=== PATIENT | male | born 1965 | race Caucasian/White ===

== ENCOUNTER 2016-03-13 15:11 | Emergency (ER) | payer BC ==
[~2016-03-13 15:11] MED LIST: AMLO-151 PO; INDA125TA PO
--- NOTE | 2016-03-13 16:26 | REP ---
Clinical: Trauma. Technique: Frontal view of the chest with multiple views of the left hemithorax. Findings: Frontal view of the chest demonstrates no acute consolidation/contusion, effusion or pneumothorax. Multiple views of the left hemithorax demonstrates no obvious acute rib fracture or pathology. Impression: Normal left rib series Signed by Markos Asher MD 03/13/2016 04:17 P
[2016-03-13] MEDS ORDERED: PERCOCET 5MG/325MG TAB As Ordered ONE (16:53)
[2016-03-13] MEDS ORDERED: BENZONATATE 100 MG CAP As Ordered ONE (16:55)
--- NOTE | 2016-03-13 17:09 | EDDOCDS ---
Physician Documentation [facility] Name: Bacilio Granados Age: 50 yrs Sex: Male : 1965 Arrival Date: 03/13/2016 Time: 15:11 Bed 17 Private MD: Ganesh Disposition: 03/13/16 16:51 Discharged to Home/Self Care. Impression: Intercostal pain. - Condition is Stable. - Discharge Instructions: Chest Wall Pain. - Prescriptions for Percocet 5- 325 mg Oral Tablet - take 1 tablet by ORAL route every 6 hours As needed MDD: 4 tabs; 20 tablet. benzonatate 200 mg Oral Capsule - take 1 capsule by ORAL route 3 times per day As needed; 30 capsule. - Medication Reconciliation, Local Pharmacy Hours form. - Follow up: Ganesh; When: 4 - 5 days; Reason: Recheck today's complaints, Continuance of care. - Problem is an ongoing problem. - Symptoms are unchanged. Historical: - Allergies: no known allergies; - Home Meds: 1. aspirin 81 mg Oral tab 1 tab once daily (Last dose: 03/13/2016 09:00) 2. Exforge HCT 5-160-12.5 mg oral tab 1 tab once daily - PMHx: Hypertension; Sleep Apnea w/o CPAP; Sarcoidosis; - PSHx: none; - Social history: Smoking status: Patient states was never smoker of tobacco. No barriers to communication noted, The patient speaks fluent Cymraes. - Family history: Not pertinent. - : The pt / caregiver states he / she is not on anticoagulants. Home medication list is obtained from the patient. - Exposure Risk Screening:: None identified. Vital Signs: 03/13 15:13 BP 148 / 98; Pulse 110; Resp 20 S; Temp 97.4(O); Pulse Ox 99% on R/A; Weight 133.81 kg gr2 / 295 lbs (R); Height 6 ft. 0 in. (182.88 cm) (R); Pain 8/10; 16:41 Pulse 110 MON; Pulse Ox 96% ; jmk 16:43 BP 154 / 98 (auto/); jmk 16:53 BP 150 / 91 (auto/); jmk 16:53 Pulse 108 MON; Pulse Ox 95% ; jmk 16:55 BP 150 / 91; Pulse 110; Resp 20; Temp 96.7(O); Pulse Ox 95% on R/A; Pain 7/10; ar3 15:13 Body Mass Index 40.01 (133.81 kg, 182.88 cm) gr2 MDM: 15:22 ECG WITH READING ER PHYS+CARDIAG ordered. EDMS 15:51 Rib Unilat W/PA Chest Only Ordered. EDMS 16:07 Financial registration complete. gjb 16:13 [facility] Payment Agreement was scanned into [employer] and attached to record. roz 16:46 oxyCODONE-acetaminophen 5 mg-325 mg 2 tabs PO once ordered. jesusita 16:46 Tessalon 200 mg PO once ordered. ke Administered Medications: 17:04 Drug: oxyCODONE-acetaminophen 2 tabs [oxycodone-acetaminophen 5 mg-325 mg tablet (2 jmk tabs)] Route: PO; 17:04 Drug: Tessalon 200 mg Route: PO; nani Signatures: Dispatcher [employer] EDMS Topher Felipe,RN RN Uche Ramirez, COIL WINDER HAND COIL WINDER HAND Sindhu Dan The chart was reviewed and I authenticate all verbal orders and agree with the evaluation and treatment provided.Attachments: 16:13 [facility] Payment Agreement gjb MTDD
--- NOTE | 2016-03-13 17:09 | EDDOCDS ---
Nurse's Notes [facility] Name: Bacilio Granados Age: 50 yrs Sex: Male : 1965 Arrival Date: 03/13/2016 Time: 15:11 Bed 17 Private MD: Ganesh Diagnosis: Intercostal pain Presentation: 03/13 15:22 Presenting complaint: Patient states: he developed chest pain after coughing - was even kcs black and blue on his left rib area - got better - today the pain has come back worse again after he coughed - now pain increases with cough and palpation. Aspirin was not taken prior to arrival. Adult Sepsis Screening: The patient does not have new or worsening altered mentation. Patient's respiratory rate is less than 22. Systolic blood pressure is greater than 100. Patient has a qSOFA score of 0- Negative Sepsis Screen. Suicide/Homicide risk assessment- the patient denies having any suicidal and/or homicidal ideations and does not present with any other emotional, behavioral or mental health complaints. Status: Patient is not a technical services representative or dependent. Transition of care: patient was not received from another setting of care. Red Flag criteria, patient assessed and taken directly to a bed. 15:22 Method Of Arrival: Wheelchair kcs 15:22 Acuity: EVELYNE Level 2 kcs Triage Assessment: 15:34 General: Appears uncomfortable. Pain: Location: left lateral anterior chest and left jmk breast. Pt Declines HIV testing. Cardiovascular: Capillary refill < 3 seconds Clubbing of nail beds is absent Heart tones S1 S2 present Edema is 1+ to left ankle Rhythm is regular Chest pain is described as radiates Does not radiate. episodes are continuous. Respiratory: No deficits noted. Airway is patent Respiratory effort is even, unlabored, Respiratory pattern is regular, Breath sounds are clear bilaterally. GI: Abdomen is flat, non- distended Bowel sounds present X 4 quads. 15:37 Cardiovascular: Chest pain began. jmk Historical: - Allergies: no known allergies; - Home Meds: 1. aspirin 81 mg Oral tab 1 tab once daily (Last dose: 03/13/2016 09:00) 2. Exforge HCT 5-160-12.5 mg oral tab 1 tab once daily - PMHx: Hypertension; Sleep Apnea w/o CPAP; Sarcoidosis; - PSHx: none; - Social history: Smoking status: Patient states was never smoker of tobacco. No barriers to communication noted, The patient speaks fluent Romansh. - Family history: Not pertinent. - : The pt / caregiver states he / she is not on anticoagulants. Home medication list is obtained from the patient. - Exposure Risk Screening:: None identified. Screenin:37 Screening information is obtained from the patient. Fall risk: No risks identified. jmk Assistance ADL's: requires no assistance with activities of daily living. Abuse/DV Screen: The patient / caregiver reports he/she is: not in a situation that causes fear, pain or injury. Nutritional screening: No deficits noted. Advance Directives: Currently, there is a health care proxy, spouse, ludy. There is no active DNR order. There is no living will. There is no Power of Organic Search Lead. Assessment: 15:37 General: Appears appears uncomfortable. Indicates discomfort to left anterior/ lateral jmk chest . splinting with inspiration. without bruising redness ecchymosis or crepetitus./ pain increases with change in position. Cardiovascular: Capillary refill < 3 seconds Clubbing of nail beds is absent Heart tones S1 S2 present Rhythm is regular. 17:04 General: Appears states pajn is 6/10 " not that bad if I do not cough. without resp jmk distress. Vital Signs: 15:13 BP 148 / 98; Pulse 110; Resp 20 S; Temp 97.4(O); Pulse Ox 99% on R/A; Weight 133.81 kg gr2 (R); Height 6 ft. 0 in. (182.88 cm) (R); Pain 8/10; 16:41 Pulse 110 MON; Pulse Ox 96% ; jmk 16:43 BP 154 / 98 (auto/); jmk 16:53 BP 150 / 91 (auto/); jmk 16:53 Pulse 108 MON; Pulse Ox 95% ; jmk 16:55 BP 150 / 91; Pulse 110; Resp 20; Temp 96.7(O); Pulse Ox 95% on R/A; Pain 7/10; ar3 15:13 Body Mass Index 40.01 (133.81 kg, 182.88 cm) gr2 Vitals: 15:13 Log In Time: March 13, 2016 at 15:13. RN notified that patient meets Red Flag gr2 criteria. ED Course: 15:13 Patient visited by Scott Muñoz. gr2 15:13 Ganesh is Private Physician. gr2 15:13 Patient moved to Waiting gr2 15:15 Patient visited by Scott Muñoz. gr2 15:21 Kinsey Hanna,RN is Primary Nurse. kcs 15:21 Patient moved to 17 kcs 15:25 Triage Initiated kcs 15:27 Patient visited by Sharyn Hickman. dem1 15:27 EKG done. (by ED staff). Reviewed by Ameena Esquivel MD. dem1 15:29 Uche Gautam FNP is PHCP. ke 15:29 Patient visited by Uche Gautam FNP. ke 15:29 Patient visited by Uche Gautam FNP. ke 15:37 The patient / caregiver is instructed regarding the plan of care and ED course. Cardiac jmk monitor on. Pulse ox on. 15:37 Inserted saline lock: 20 gauge in left antecubital area. jmk 15:40 Patient visited by Topher Felipe RN. jmk 16:13 Patient visited by Uche Gautam FNP. ke 16:13 [facility] Payment Agreement was scanned into [employer] and attached to record. gjb 16:41 Patient visited by Uche Gautam FNP. ke 16:41 Discontinued lock intact, bleeding controlled, pressure dressing applied, No jmk redness/swelling at site. No procedures done that require assistance. 16:50 Ganesh is Referral Physician. ke 16:53 Rib Unilat W/PA Chest Only Returned. EDMS 16:56 Patient visited by Mey Willoughby PCA. ar3 Administered Medications: 17:04 Drug: oxyCODONE-acetaminophen 2 tabs [oxycodone-acetaminophen 5 mg-325 mg tablet (2 jmk tabs)] Route: PO; 17:04 Drug: Tessalon 200 mg Route: PO; jmk Order Results: Radiology Order: Rib Unilat W/PA Chest Only Test: Rib Unilat W/PA Chest Only REASON FOR EXAMINATION: Chest Pain; Clinical: Trauma.; ; Technique: Frontal view of the chest with multiple views of the left; hemithorax.; ; Findings:; Frontal view of the chest demonstrates no acute consolidation/contusion, effusion; or pneumothorax. Multiple views of the left hemithorax demonstrates no obvious; acute rib fracture or pathology.; ; Impression:; Normal left rib series; ; ; Signed by; Markos Asher MD 03/13/2016 04:17 P; Outcome: 16:41 Discharge Assessment: Patient awake, alert and oriented x 3. No cognitive and/or jmk functional deficits noted. Patient verbalized understanding of disposition instructions. patient administered narcotics - yes. Pt provided with safe discharge. The following High Risk Discharge criteria are identified: None. Discharged to home ambulatory, with family. Condition: good. Discharge instructions given to patient, Instructed on discharge instructions, follow up and referral plans. medication usage, Demonstrated understanding of instructions, medications, Pt was receptive of discharge instructions/ teaching. Prescriptions given X 2. No special radiology studies were completed. Property :Personal belongings accompany Pt. 16:51 Discharge ordered by Provider. jesusita 17:08 Patient left the ED. nani Signatures: Dispatcher [employer] EDMS Mell Stone, RN RN Topher Darling RN RN jmk Elsner, Karl, BIOMETRICS ANALYST BIOMETRICS ANALYST Mey Perez, DIEGO CORPORATE SCHEDULER ar3 Sharyn Hickman1 Scott Muñoz gr2 Sindhu Correa MTDD
--- NOTE | 2016-03-14 08:09 | ECGEPIP ---
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
--- NOTE | 2016-03-15 18:08 | EDDOCDS ---
Physician Documentation [facility] Name: Bacilio Granados Age: 50 yrs Sex: Male : 1965 Arrival Date: 03/13/2016 Time: 15:11 Bed 17 Private MD: Ganesh Disposition: 03/13/16 16:51 Discharged to Home/Self Care. Impression: Intercostal pain. - Condition is Stable. - Discharge Instructions: Chest Wall Pain. - Prescriptions for Percocet 5- 325 mg Oral Tablet - take 1 tablet by ORAL route every 6 hours As needed MDD: 4 tabs; 20 tablet. benzonatate 200 mg Oral Capsule - take 1 capsule by ORAL route 3 times per day As needed; 30 capsule. - Medication Reconciliation, Local Pharmacy Hours form. - Follow up: Ganesh; When: 4 - 5 days; Reason: Recheck today's complaints, Continuance of care. - Problem is an ongoing problem. - Symptoms are unchanged. Historical: - Allergies: no known allergies; - Home Meds: 1. aspirin 81 mg Oral tab 1 tab once daily (Last dose: 03/13/2016 09:00) 2. Exforge HCT 5-160-12.5 mg oral tab 1 tab once daily - PMHx: Hypertension; Sleep Apnea w/o CPAP; Sarcoidosis; - PSHx: none; - Social history: Smoking status: Patient states was never smoker of tobacco. No barriers to communication noted, The patient speaks fluent Czech. - Family history: Not pertinent. - : The pt / caregiver states he / she is not on anticoagulants. Home medication list is obtained from the patient. - Exposure Risk Screening:: None identified. Vital Signs: 03/13 15:13 BP 148 / 98; Pulse 110; Resp 20 S; Temp 97.4(O); Pulse Ox 99% on R/A; Weight 133.81 kg gr2 / 295 lbs (R); Height 6 ft. 0 in. (182.88 cm) (R); Pain 8/10; 16:41 Pulse 110 MON; Pulse Ox 96% ; jmk 16:43 BP 154 / 98 (auto/); jmk 16:53 BP 150 / 91 (auto/); jmk 16:53 Pulse 108 MON; Pulse Ox 95% ; jmk 16:55 BP 150 / 91; Pulse 110; Resp 20; Temp 96.7(O); Pulse Ox 95% on R/A; Pain 7/10; ar3 15:13 Body Mass Index 40.01 (133.81 kg, 182.88 cm) gr2 MDM: 15:22 ECG WITH READING ER PHYS+CARDIAG ordered. EDMS 15:51 Rib Unilat W/PA Chest Only Ordered. EDMS 16:07 Financial registration complete. gjb 16:13 [facility] Payment Agreement was scanned into [employer] and attached to record. gjb 16:46 oxyCODONE-acetaminophen 5 mg-325 mg 2 tabs PO once ordered. ke 16:46 Tessalon 200 mg PO once ordered. ke 03/14 03:58 T-Sheet-- Draft Copy was scanned into [employer] and attached to record. hs2 09:14 ECG/EKG was scanned into [employer] and attached to record. gb Administered Medications: 03/13 17:04 Drug: oxyCODONE-acetaminophen 2 tabs [oxycodone-acetaminophen 5 mg-325 mg tablet (2 jmk tabs)] Route: PO; 17:04 Drug: Tessalon 200 mg Route: PO; nani Signatures: Dispatcher [employer] EDMS Topher Felipe,RN RN jmk Erika Mooney, Reg Reg gb Uche Gautam, Sindhu Ambroseb Soheila Rousseau, Reg Reg hs2 The chart was reviewed and I authenticate all verbal orders and agree with the evaluation and treatment provided.Attachments: 16:13 [facility] Payment Agreement gjb 03/14 03:58 T-Sheet-- Draft Copy hs2 09:14 ECG/EKG Chart Complete MTDD
--- NOTE | 2016-03-15 18:09 | EDDOCDS ---
Physician Documentation [facility] Name: Bacilio Granados Age: 50 yrs Sex: Male : 1965 Arrival Date: 03/13/2016 Time: 15:11 Bed 17 Private MD: Ganesh Disposition: 03/13/16 16:51 Discharged to Home/Self Care. Impression: Intercostal pain. - Condition is Stable. - Discharge Instructions: Chest Wall Pain. - Prescriptions for Percocet 5- 325 mg Oral Tablet - take 1 tablet by ORAL route every 6 hours As needed MDD: 4 tabs; 20 tablet. benzonatate 200 mg Oral Capsule - take 1 capsule by ORAL route 3 times per day As needed; 30 capsule. - Medication Reconciliation, Local Pharmacy Hours form. - Follow up: Ganesh; When: 4 - 5 days; Reason: Recheck today's complaints, Continuance of care. - Problem is an ongoing problem. - Symptoms are unchanged. Historical: - Allergies: no known allergies; - Home Meds: 1. aspirin 81 mg Oral tab 1 tab once daily (Last dose: 03/13/2016 09:00) 2. Exforge HCT 5-160-12.5 mg oral tab 1 tab once daily - PMHx: Hypertension; Sleep Apnea w/o CPAP; Sarcoidosis; - PSHx: none; - Social history: Smoking status: Patient states was never smoker of tobacco. No barriers to communication noted, The patient speaks fluent Colombian. - Family history: Not pertinent. - : The pt / caregiver states he / she is not on anticoagulants. Home medication list is obtained from the patient. - Exposure Risk Screening:: None identified. Vital Signs: 03/13 15:13 BP 148 / 98; Pulse 110; Resp 20 S; Temp 97.4(O); Pulse Ox 99% on R/A; Weight 133.81 kg gr2 / 295 lbs (R); Height 6 ft. 0 in. (182.88 cm) (R); Pain 8/10; 16:41 Pulse 110 MON; Pulse Ox 96% ; jmk 16:43 BP 154 / 98 (auto/); jmk 16:53 BP 150 / 91 (auto/); jmk 16:53 Pulse 108 MON; Pulse Ox 95% ; jmk 16:55 BP 150 / 91; Pulse 110; Resp 20; Temp 96.7(O); Pulse Ox 95% on R/A; Pain 7/10; ar3 15:13 Body Mass Index 40.01 (133.81 kg, 182.88 cm) gr2 MDM: 15:22 ECG WITH READING ER PHYS+CARDIAG ordered. EDMS 15:51 Rib Unilat W/PA Chest Only Ordered. EDMS 16:07 Financial registration complete. gjb 16:13 [facility] Payment Agreement was scanned into [employer] and attached to record. gjb 16:46 oxyCODONE-acetaminophen 5 mg-325 mg 2 tabs PO once ordered. ke 16:46 Tessalon 200 mg PO once ordered. ke 03/14 03:58 T-Sheet-- Draft Copy was scanned into [employer] and attached to record. hs2 09:14 ECG/EKG was scanned into [employer] and attached to record. gb Administered Medications: 03/13 17:04 Drug: oxyCODONE-acetaminophen 2 tabs [oxycodone-acetaminophen 5 mg-325 mg tablet (2 jmk tabs)] Route: PO; 17:04 Drug: Tessalon 200 mg Route: PO; nani Signatures: Dispatcher [employer] EDMS Topher Felipe,RN RN jmk Erika Mooney, Reg Reg gb Uche Gautam, Sindhu Ambroseb Soheila Rousseau, Reg Reg hs2 The chart was reviewed and I authenticate all verbal orders and agree with the evaluation and treatment provided.Attachments: 16:13 [facility] Payment Agreement gjb 03/14 03:58 T-Sheet-- Draft Copy hs2 09:14 ECG/EKG Chart Complete MTDD
--- NOTE | 2016-03-15 18:09 | EDDOCDS ---
Nurse's Notes [facility] Name: Davonte Granados Age: 50 yrs Sex: Male : 1965 Arrival Date: 03/13/2016 Time: 15:11 Bed 17 Private MD: Ganesh Diagnosis: Intercostal pain Presentation: 03/13 15:22 Presenting complaint: Patient states: he developed chest pain after coughing - was even kcs black and blue on his left rib area - got better - today the pain has come back worse again after he coughed - now pain increases with cough and palpation. Aspirin was not taken prior to arrival. Adult Sepsis Screening: The patient does not have new or worsening altered mentation. Patient's respiratory rate is less than 22. Systolic blood pressure is greater than 100. Patient has a qSOFA score of 0- Negative Sepsis Screen. Suicide/Homicide risk assessment- the patient denies having any suicidal and/or homicidal ideations and does not present with any other emotional, behavioral or mental health complaints. Status: Patient is not a creative services producer or dependent. Transition of care: patient was not received from another setting of care. Red Flag criteria, patient assessed and taken directly to a bed. 15:22 Method Of Arrival: Wheelchair kcs 15:22 Acuity: EVELYNE Level 2 kcs Triage Assessment: 15:34 General: Appears uncomfortable. Pain: Location: left lateral anterior chest and left jmk breast. Pt Declines HIV testing. Cardiovascular: Capillary refill < 3 seconds Clubbing of nail beds is absent Heart tones S1 S2 present Edema is 1+ to left ankle Rhythm is regular Chest pain is described as radiates Does not radiate. episodes are continuous. Respiratory: No deficits noted. Airway is patent Respiratory effort is even, unlabored, Respiratory pattern is regular, Breath sounds are clear bilaterally. GI: Abdomen is flat, non- distended Bowel sounds present X 4 quads. 15:37 Cardiovascular: Chest pain began. jmk Historical: - Allergies: no known allergies; - Home Meds: 1. aspirin 81 mg Oral tab 1 tab once daily (Last dose: 03/13/2016 09:00) 2. Exforge HCT 5-160-12.5 mg oral tab 1 tab once daily - PMHx: Hypertension; Sleep Apnea w/o CPAP; Sarcoidosis; - PSHx: none; - Social history: Smoking status: Patient states was never smoker of tobacco. No barriers to communication noted, The patient speaks fluent [place]. - Family history: Not pertinent. - : The pt / caregiver states he / she is not on anticoagulants. Home medication list is obtained from the patient. - Exposure Risk Screening:: None identified. Screenin:37 Screening information is obtained from the patient. Fall risk: No risks identified. jmk Assistance ADL's: requires no assistance with activities of daily living. Abuse/DV Screen: The patient / caregiver reports he/she is: not in a situation that causes fear, pain or injury. Nutritional screening: No deficits noted. Advance Directives: Currently, there is a health care proxy, spouse, ludy. There is no active DNR order. There is no living will. There is no Power of Revenue Field Agent. Assessment: 15:37 General: Appears appears uncomfortable. Indicates discomfort to left anterior/ lateral jmk chest . splinting with inspiration. without bruising redness ecchymosis or crepetitus./ pain increases with change in position. Cardiovascular: Capillary refill < 3 seconds Clubbing of nail beds is absent Heart tones S1 S2 present Rhythm is regular. 17:04 General: Appears states pajn is 6/10 " not that bad if I do not cough. without resp jmk distress. Vital Signs: 15:13 BP 148 / 98; Pulse 110; Resp 20 S; Temp 97.4(O); Pulse Ox 99% on R/A; Weight 133.81 kg gr2 (R); Height 6 ft. 0 in. (182.88 cm) (R); Pain 8/10; 16:41 Pulse 110 MON; Pulse Ox 96% ; jmk 16:43 BP 154 / 98 (auto/); jmk 16:53 BP 150 / 91 (auto/); jmk 16:53 Pulse 108 MON; Pulse Ox 95% ; jmk 16:55 BP 150 / 91; Pulse 110; Resp 20; Temp 96.7(O); Pulse Ox 95% on R/A; Pain 7/10; ar3 15:13 Body Mass Index 40.01 (133.81 kg, 182.88 cm) gr2 Vitals: 15:13 Log In Time: March 13, 2016 at 15:13. RN notified that patient meets Red Flag gr2 criteria. ED Course: 15:13 Patient visited by Scott Muñoz. gr2 15:13 Ganesh is Private Physician. gr2 15:13 Patient moved to Waiting gr2 15:15 Patient visited by Scott Muñoz. gr2 15:21 Kinsey Hanna,RN is Primary Nurse. kcs 15:21 Patient moved to 17 kcs 15:25 Triage Initiated kcs 15:27 Patient visited by Sharyn Hickman. dem1 15:27 EKG done. (by ED staff). Reviewed by Ameena Esquivel MD. dem1 15:29 Uche Gautam FNP is PHCP. ke 15:29 Patient visited by Uche Gautam FNP. ke 15:29 Patient visited by Uche Gautam FNP. ke 15:37 The patient / caregiver is instructed regarding the plan of care and ED course. Cardiac jmk monitor on. Pulse ox on. 15:37 Inserted saline lock: 20 gauge in left antecubital area. jmk 15:40 Patient visited by Topher Felipe,JOSE. jmk 16:13 Patient visited by Uche Gautam FNP. ke 16:13 [facility] Payment Agreement was scanned into [employer] and attached to record. gjb 16:41 Patient visited by Uche Gautam FNP. ke 16:41 Discontinued lock intact, bleeding controlled, pressure dressing applied, No jmk redness/swelling at site. No procedures done that require assistance. 16:50 Ganesh is Referral Physician. ke 16:53 Rib Unilat W/PA Chest Only Returned. EDMS 16:56 Patient visited by Mey Willoughby PCA. ar3 03/14 03:58 T-Sheet-- Draft Copy was scanned into [employer] and attached to record. hs2 08:36 EKG-ADULT Returned. EDMS 09:14 ECG/EKG was scanned into [employer] and attached to record. 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; : 1965 Requested By: AMEENA Rubio; Order Number: [id number] Reading MD: Amanda Chun; Measurements; Intervals [place]; Rate: 110 P: 23; OK: 148 QRS: 3; QRSD: 85 T: 29; QT: 322; QTc: 436; Interpretive Statements; SINUS TACHYCARDIA; ABNORMAL RHYTHM ECG; NO PRIOR FOR COMPARISON; ; Electronically Signed On 03-14-2016 8:09:06 EST by Amanda Chun; Radiology Order: Rib Unilat W/PA Chest Only Test: Rib Unilat W/PA Chest Only REASON FOR EXAMINATION: Chest Pain; Clinical: Trauma.; ; Technique: Frontal view of the chest with multiple views of the left; hemithorax.; ; Findings:; Frontal view of the chest demonstrates no acute consolidation/contusion, effusion; or pneumothorax. Multiple views of the left hemithorax demonstrates no obvious; acute rib fracture or pathology.; ; Impression:; Normal left rib series; ; ; Signed by; Markos Asher MD 03/13/2016 04:17 P; Outcome: 16:41 Discharge Assessment: Patient awake, alert and oriented x 3. No cognitive and/or jmk functional deficits noted. Patient verbalized understanding of disposition instructions. patient administered narcotics - yes. Pt provided with safe discharge. The following High Risk Discharge criteria are identified: None. Discharged to home ambulatory, with family. Condition: good. Discharge instructions given to patient, Instructed on discharge instructions, follow up and referral plans. medication usage, Demonstrated understanding of instructions, medications, Pt was receptive of discharge instructions/ teaching. Prescriptions given X 2. No special radiology studies were completed. Property :Personal belongings accompany Pt. 16:51 Discharge ordered by Provider. jesusita 17:08 Patient left the ED. nani Signatures: Dispatcher [employer] EDMell Hernández, RN Topher Tamez RN RN jmk Barnhardt, Erika, Reg Reg gb Uche Gautam, EYEGLASS LENS GENERATOR EYEGLASS LENS GENERATOR ke Mey Willoughby, DIEGO STRAW HAT PRESSER ar3 Sharyn Hickman dem1 Scott Muñoz gr2 Sindhu Correab Soheila Rousseau, Reg Reg hs2 Chart Complete MTDD
== END 2016-03-13 17:08 | disposition home or self-care (01) ==
LOC: M ED 15:11
DX: R07.82 Intercostal pain (principal); I10 Essential (primary) hypertension; G47.30 Sleep apnea, unspecified; D86.9 Sarcoidosis, unspecified; Z79.82 Long term (current) use of aspirin; Z79.899 Other long term (current) drug therapy

== ENCOUNTER → 2017-10-15 | Outpatient (REF) | payer BC ==
[2017-10-16 14:14] LABS: PSA TOTAL 3.3 ng/mL (0.0-4.0)
== END ==
LOC: M LAB REF 12:58
DX: R97.20 Elevated prostate specific antigen [PSA] (principal)
CPT/HCPCS: 84154

== ENCOUNTER 2018-07-26 07:32 | Day surgery (SDC) | payer BC ==
[~2018-07-26] VITALS: Ht 182.9 cm; Wt 135.6 kg
[~2018-07-26 07:32] MED LIST changes: +AMLO-150 PO; +ASPI81TA85 PO
[2018-07-26] MEDS ORDERED: LIDOCAINE 2% INJ 100 MG/5 ML SDV (FOR ANES.) As Ordered ONE (07:55)
[2018-07-26] MEDS ORDERED: PROPOFOL 200 MG/20 ML VIAL As Ordered ONE (07:56)
--- NOTE | 2018-07-26 09:01 | ROOR ---
Patient Name: Bacilio Granados Procedure Date: 07/26/2018 8:33 AM Date of : 1965 Age: 53 Room: [facility] Gender: Male Note Status: Finalized Procedure: Colonoscopy Indications: High risk colon cancer surveillance: Personal history of colonic polyps, Last colonoscopy: June 2015 Providers: Genaro BEEBE MD Referring MD: CHARLY DE LA O JR, MD Requesting Provider: Medicines: Monitored Anesthesia Care Complications: No immediate complications. Procedure: Pre-Anesthesia Assessment: - The heart rate, respiratory rate, oxygen saturations, blood pressure, adequacy of pulmonary ventilation, and response to care were monitored throughout the procedure. The Colonoscope was introduced through the anus and advanced to the terminal ileum, with identification of the appendiceal orifice and IC valve. The colonoscopy was performed without difficulty. The patient tolerated the procedure well. The quality of the bowel preparation was good. Findings: The perianal and digital rectal examinations were normal. A tattoo was seen in the mid rectum. A post-polypectomy scar was found at the tattoo site. There was no evidence of residual polyp tissue. Small Internal Hemorrhoids. The exam was otherwise without abnormality on direct and retroflexion views. Retroflexion in the right colon was performed. (Exam: Complete, Prep: Good or Excellent.) Impression: - (Exam: Complete, Prep: Good or Excellent.) - A tattoo was seen in the mid rectum. A post-polypectomy scar was seen. There was no evidence of residual polyp tissue. - Small Internal Hemorrhoids. - The examination was otherwise normal on direct and retroflexion views. - (Exam: Complete, Prep: Good or Excellent.) - No specimens collected. Recommendation: - Repeat colonoscopy in 5 years for surveillance based on personal history of previous adenomatous polyps. Genaro Beebe MD Genaro BEEBE MD 07/26/2018 9:01:03 AM Electronically signed by Genaro BEEBE MD Number of Addenda: 0 Note Initiated On: 07/26/2018 8:33 AM Estimated Blood Loss: Estimated blood loss: none.
[2018-07-26 09:15] VITALS: BP 145/102
== END 2018-07-26 09:26 | disposition home or self-care (01) ==
LOC: M OPP 07:32
PROVIDERS: ATTEND Internal Medicine Gastroenterology
DX: K64.8 Other hemorrhoids (principal); Z86.010 Personal history of colon polyps

== ENCOUNTER → 2019-07-04 | Outpatient (CLI) | payer BC ==
[~2019-07-04] MED LIST changes: -AMLO-150 PO; -AMLO-151 PO; +AMLO-179 PO; +AMLO-180 PO
== END ==
LOC: M LAB 09:01
PROVIDERS: ATTEND Urology
DX: R97.20 Elevated prostate specific antigen [PSA] (principal)

== ENCOUNTER → 2019-08-25 | Outpatient (REF) | payer BC | LOC: M LAB REF 17:37 | PROVIDERS: ATTEND Dermatology | DX: D22.62 Melanocytic nevi of left upper limb, including shoulder (principal); D22.5 Melanocytic nevi of trunk; D22.71 Melanocytic nevi of right lower limb, including hip ==

== ENCOUNTER → 2019-08-26 | Outpatient (REF) | payer BC ==
[~2019-08-26] MED LIST changes: -ASPI81TA85 PO; +ASPI81TA86 PO
[2019-08-27 08:09] LABS: LDL DIRECT 112 mg/dL (0-99)
== END ==
LOC: M LAB REF 11:34
PROVIDERS: ATTEND Internal Medicine
DX: E78.5 Hyperlipidemia, unspecified (principal); E78.00 Pure hypercholesterolemia, unspecified

== ENCOUNTER → 2020-04-26 | Outpatient (CLI) | payer SELFPAY | LOC: M LABSMTC 13:08 | PROVIDERS: ATTEND Pediatrics | DX: Z20.822 Contact with and (suspected) exposure to COVID-19 (principal) ==

== ENCOUNTER → 2020-04-30 | Outpatient (REF) | payer SELFPAY | LOC: EDSTATUS 12:05 → M LABSMTC 12:10 | PROVIDERS: ATTEND Pediatrics | DX: Z20.822 Contact with and (suspected) exposure to COVID-19 (principal) ==

== ENCOUNTER → 2020-06-08 | Outpatient (REF) | LOC: M LABSMTC 09:46 | PROVIDERS: ATTEND Pediatrics | DX: Z20.822 Contact with and (suspected) exposure to COVID-19 (principal) ==

== ENCOUNTER → 2020-06-11 | Outpatient (REF) | LOC: M LABSMTC 09:45 | PROVIDERS: ATTEND Pediatrics | DX: Z11.52 Encounter for screening for COVID-19 (principal) ==

== ENCOUNTER → 2021-03-10 | Outpatient (REF) ==
[2021-03-10 13:38] LABS: RSV AMPLIFICATION NEGATIVE (NEGATIVE)
== END ==
LOC: M EMP 12:34
PROVIDERS: ATTEND Family Medicine
DX: Z11.52 Encounter for screening for COVID-19 (principal)

== ENCOUNTER → 2021-09-29 | Outpatient (REF) | LOC: M EMP 12:42 | PROVIDERS: ATTEND Family Medicine | DX: Z11.52 Encounter for screening for COVID-19 (principal) ==

== ENCOUNTER → 2022-02-23 | Outpatient (CLI) | payer BC, SELFPAY ==
[~2022-02-23] MED LIST changes: +INDA1.253 PO; -INDA125TA PO
== END ==
LOC: M SOG 15:41
PROVIDERS: ATTEND Physician Assistant
DX: M18.11 Unilateral primary osteoarthritis of first carpometacarpal joint, right hand (principal)

== ENCOUNTER 2024-04-01 08:35 | Day surgery (SDC) | payer BC ==
[~2024-04-01] VITALS: Ht 182.9 cm; Wt 129.3 kg
[~2024-04-01 08:35] MED LIST changes: +ATOR40TA75 PO; +DILT0.05 PO; +IRBE300T25 PO
[2024-04-01] MEDS ORDERED: NS 250 ML IV ONE (10:00)
[2024-04-01] MEDS ORDERED: propofoL 200 MG/20 ML VIAL As Ordered ONE (10:16)
[2024-04-01] MEDS ORDERED: LIDOCAINE 1% MDV 20ML VIAL As Ordered ONE (10:16)
[2024-04-01 10:47] VITALS: TEMP 97.8
[2024-04-01 11:05] VITALS: BP 135/81; O2SAT 96
== END 2024-04-01 11:13 | disposition home or self-care (01) ==
LOC: M OPP 08:35
PROVIDERS: ATTEND Surgery
DX: Z12.11 Encounter for screening for malignant neoplasm of colon (principal); Z86.0100 Personal history of colon polyps, unspecified; D12.5 Benign neoplasm of sigmoid colon; D12.3 Benign neoplasm of transverse colon; K57.30 Diverticulosis of large intestine without perforation or abscess without bleeding; I10 Essential (primary) hypertension; G47.33 Obstructive sleep apnea (adult) (pediatric); J84.10 Pulmonary fibrosis, unspecified; Z79.899 Other long term (current) drug therapy